=== PATIENT | male | born 2000 | race Two or more races ===

== ENCOUNTER 2023-02-26 23:53 | Emergency (ER) | payer OTHER ==
[~2023-02-26] VITALS: Ht 180.3 cm; Wt 90.7 kg
[2023-02-27] MEDS ORDERED: CEPHALEXIN500 MG PO (03:05)
[2023-02-27] MEDS ORDERED: KETO10TA2 PO (03:06)
== END 2023-02-27 03:14 | disposition home or self-care (01) ==
LOC: ER 23:53
DX: S21.021A Laceration with foreign body of right breast, initial encounter (principal); W45.8XXA Other foreign body or object entering through skin, initial encounter; Y93.9 Activity, unspecified; Y92.89 Other specified places as the place of occurrence of the external cause; Y99.9 Unspecified external cause status
CPT/HCPCS: 90471; 90714; J1670